=== PATIENT | female | born 1970 | race African-American/Black ===

== ENCOUNTER 2018-05-10 09:23 | Outpatient (CLI) | payer MEDICAID, SELFPAY ==
[2018-05-11 18:53] LABS: Food Panel <0.35 kU/L; Food Panel #2, IgE <0.35 kU/L
== END 2018-05-10 09:24 ==
PROVIDERS: Nurse Practitioner; PCP Family Medicine; Visit Provider Family Medicine
DX: L29.9 Pruritus, unspecified (principal)
CPT/HCPCS: 36415; 86003

== ENCOUNTER 2019-01-20 03:26 | Outpatient (CLI) | payer OTHER, SELFPAY | END 2019-01-20 03:46 | PROVIDERS: PCP Family Medicine; Visit Provider Family Medicine | DX: Z13.1 Encounter for screening for diabetes mellitus (principal); Z13.29 Encounter for screening for other suspected endocrine disorder; Z13.228 Encounter for screening for other metabolic disorders | CPT/HCPCS: 80048; 84443 ==

== ENCOUNTER 2019-11-10 02:45 | Outpatient (CLI) | payer OTHER, SELFPAY ==
--- NOTE | 2019-11-10 07:15 | DI.MAMMO_ITS ---
EXAM: MAMMO SCREENING CLINICAL HISTORY: screening,Z12.39 TECHNIQUE: Mammograms were interpreted according to the usual protocol including computer analysis w [employer] CAD system, tomosynthesis and C-view imaging. COMPARISON: 2009 through 2013 FINDINGS: The breasts are composed of mainly fatty density , Breast Density category A. No suspicious masses or suspicious microcalcifications are seen. No skin thickening or abnormal axillary lymph nodes are seen. There has been no significant change from prior exams. IMPRESSION: BIRADS Category 1, negative mammogram. Yearly screening mammography is recommended. Breast density category A.
--- NOTE | 2019-11-10 14:25 | DI.US_ITS ---
EXAM: US PELVIS AND TRANSVAGINAL CLINICAL HISTORY: Hx R dermoid cyst,OVARIAN CYST,N83.209,D25.9 TECHNIQUE: Transabdominal and transvaginal exams were performed. COMPARISON: PELVIS TRANSVAG from 01/29/2017 PELVIS TRANSVAG from 03/18/2018 FINDINGS: The uterus measures 10.3 x 5.3 x 6.7 cm. Two small posterior fibroids are seen measuring 1.8 and 2.2 cm in greatest dimension. The endometrial stripe measures 9 millimeters in thickness. There is a s mall amount of fluid in the cul-de-sac. There are 2 small follicles or simple cysts on the left ovar y. The right ovary shows a 1.2 centimeter dominant follicle. The previously noted echogenic mass is not visible on the current exam. There are mildly prominent pelvic vessels, which could indicate pe lvic congestion syndrome. There is a question of an echogenic focus measuring 3 millimeters in the m id left kidney. A small cyst is noted at the lower pole of the right kidney. There is no hydronephr osis. IMPRESSION: Previously noted hyperechoic right ovarian mass is no longer seen. Follicles are noted bilaterally. Uterine fibroids are again noted. DATA REPOSITORY:
== END 2019-11-10 03:05 ==
PROVIDERS: PCP Family Medicine; Visit Provider Nurse Practitioner Women's Health
DX: Z12.31 Encounter for screening mammogram for malignant neoplasm of breast (principal); D25.9 Leiomyoma of uterus, unspecified; N83.02 Follicular cyst of left ovary; N83.01 Follicular cyst of right ovary; N28.1 Cyst of kidney, acquired
CPT/HCPCS: 77063; 77067; 76830; 76856

== ENCOUNTER 2019-11-26 09:12 | Outpatient (CLI) | payer OTHER, SELFPAY ==
[2019-11-26 00:59] LABS: Calculated LDL 119 mg/dL (<100); Cholesterol 202 mg/dL (<200); HDL Cholesterol 53 mg/dL (40-60); Triglyceride 151 mg/dL (<150)
== END 2019-11-26 09:32 ==
PROVIDERS: PCP Family Medicine; Visit Provider Nurse Practitioner Women's Health
DX: Z13.220 Encounter for screening for lipoid disorders (principal)
CPT/HCPCS: 80061; 93005; 96360; 99284; 93010

== ENCOUNTER 2021-01-21 09:22 | Outpatient (REF) | payer OTHER, SELFPAY ==
--- NOTE | 2021-01-21 08:40 | PAPFT_PTH ---
PATIENT: Anand Ruiz LOC: [facility] U#:[id number] AGE/SX: 50/F ROOM: RE01/21/[address]: Ludmila Dockery NP : 1970 BED: DIS: 01/21/2021 SPEC #: [id number] RECD: 01/21/21 12:50 STATUS: SHANDRA AMAYA #: [id number] KAY: 01/21/21 08:[address]: Ludmila Dockery NP DEPT: [facility] Cytology RECD BY: Mai Ayon ENTERED: 01/21/21 12:51 SP TYPE: PAPFT OTHR DR: Alexis Gao, DO Tissues: 1 - CX/ENDOCX FOR PAP SMEARS Procedures: PAP THIN PREP/UVM Screening HPV DNA PROBE Comments: [id number]
== END 2021-01-21 09:23 | disposition home or self-care (01) ==
LOC: LBN 09:22
PROVIDERS: PCP Family Medicine; Visit Provider Nurse Practitioner Women's Health
DX: Z12.4 Encounter for screening for malignant neoplasm of cervix (principal); Z11.51 Encounter for screening for human papillomavirus (HPV)
CPT/HCPCS: 88142; 87624

== ENCOUNTER 2021-03-07 03:19 | Outpatient (CLI) | payer OTHER, SELFPAY ==
--- NOTE | 2021-03-07 06:52 | DI.MAMMO_ITS ---
Exam(s) MAMMO SCREENING EXAM: MAMMO SCREENING CLINICAL HISTORY: screening, Z12.39. TECHNIQUE: Bilateral full field digital CC and MLO mammographic images were obtained with 3D tomosyn thesis and utilizing computer aided detection (CAD). COMPARISON: Prior outside mammogram performed October 2019 FINDINGS: The fibroglandular tissue pattern is again noted be moderately dense, this decreasing the sensitivity of the mammogram for finding in underlying lesions. There are no CAD designations There are no new obvious spiculated masses nor malignant appearing microcalcification groups. There is no significant architectural distortion nor skin thickening-retraction. IMPRESSION: Moderately dense fibroglandular tissue. No obvious radiographic evidence of malignancy nor significa nt change compared to the prior mammogram of October 2019. BI-RADS Category 1 - Negative Breast Density - Category C - Heterogeneously dense Breast density Category C or D implies that the patient has dense breast tissue. Dense breast tissue can make it harder to find cancer on a mammogram. Dense breast tissue is also associated with an incr eased risk of breast cancer. This information about the result of the mammogram report was provided to the patient to raise their awareness. Use this report when you speak with the patient about their risks for breast cancer, which includes their family history. At that time, you may recommend additional screening tests (Ultrasoun d or MRI) as these tests may add significant information. A negative radiographic report should not delay biopsy if a dominant or clinically suspicious mass is present. Up to ten percent of cancers are not identified on mammography. A negative report may reinforce clinical impression. Adenosis and dense breasts may obscure an underlying neoplasm. False positive reports average 6 to 10%. Patient will receive a letter notifying them of these results.
== END 2021-03-07 03:39 ==
PROVIDERS: PCP Family Medicine; Visit Provider Nurse Practitioner Women's Health
DX: Z12.31 Encounter for screening mammogram for malignant neoplasm of breast (principal)
CPT/HCPCS: 77063; 77067

== ENCOUNTER 2021-05-15 10:42 | Outpatient (REF) | payer OTHER, SELFPAY ==
[2021-05-15 11:49] LABS: Calculated LDL 92 mg/dL (<100); Cholesterol 165 mg/dL (<200); HDL Cholesterol 58 mg/dL (40-60); Triglyceride 77 mg/dL (<150)
[2021-05-16 11:22] LABS: Hepatitis C Ab w Rflx HCV PCR Negative (Negative)
== END 2021-05-15 10:43 | disposition home or self-care (01) ==
LOC: LBN 10:42
PROVIDERS: PCP Family Medicine; Visit Provider Nurse Practitioner Family
DX: E78.5 Hyperlipidemia, unspecified (principal); Z11.59 Encounter for screening for other viral diseases
CPT/HCPCS: 80061; 86803

== ENCOUNTER 2022-01-29 07:45 | Day surgery (SDC) | payer OTHER, SELFPAY ==
--- NOTE | 2022-01-29 06:40 | COLE_ITS ---
Colonoscopy Report Date of procedure: 01/29/22 Pre-op diagnosis general: Colon Cancer screening Procedure: Colonoscopy Surgeon: Gabrielle Alas Anesthesia Type: General:No Airway Complications: None Disposition: same day Indications: Mrs Ruiz is a very pleasant 51-year-old female who is here to discuss her first screening colonoscopy.? She is very healthy and does not take any medications.? She has no family history of colon cancer.? She does not smoke or drink alcohol.? The colonoscopy was described in detail including the risks and benefi ts. Risks, benefits and complications have been reviewed. Complications include but are not limited to bleeding, pain, perforation, missed small lesion/polyp, sore throat, aspiration and adverse reaction to the medications. Questions were entertained and answered to their satisfaction and they wished to proceed. No guarantees were given or implied. Proceed with colonoscopy under sedation Prep: Miralax/Dulcolax Procedure Description: After informed consent was obtained the patient was taken to the procedure room and placed in a left decubitous position. Monitors were applied and a time out was done. The patients name, date of , procedure, allergies to medications and metal in their body was reviewed. The patient was then sedated. Once sedated and comfortable a rectal exam was done. External exam was normal. Internal exam revealed a normal sphincter tone and no palpable masses. The prostate []. The scope was then introduced and retro-flexed. [] internal hemorrhoids, polyps or masses were identified on retro-flexion. The scope was then advanced to the cecum [] difficulty. The ileocecal vlave and appendiceal orifice were identified. The prep was []. The scope was then slowly retracted over [] minutes back into the rectum. Polyps were removed at []. There was [] diverticulosis noted. The scope was removed and the patient was woken up and taken back to Same day surgery in stable condition. The patient tolerated the procedure well and there were no immediate complications. Follow up: The patient should follow up in [] years unless they develop changes in bowel habits or other new gastrointestinal complaints.
--- NOTE | 2022-01-29 06:48 | W.PM.DSUDISC ---
Discharge Plan Disposition Patient Disposition: HOME Condition: Good Discharge Details Reason For Visit: Colonoscopy Attending Provider: Gabrielle Alas Primary Care Provider: Alexis Gao Home Meds and New Rx's Prescriptions: No Action ibuprofen 800 mg tablet 800 mg PO Q8H PRN MDD 2400 mg PRN Rx Instructions: As needed for migraines Discharge Instructions Additional Instructions: Findings: Follow up: Please call if you develop: fevers >101.5 Nausea or Vomiting Abdominal pain that is not transient Rectal bleeding that is more then a tbsp A hard abdomen and inability to pass gas DAY SURGERY UNIT POST ENDOSCOPY INSTRUCTIONS Instructions for everyone who is given Anesthesia: For your safety, please do the following for the next 24 Hours: a. Do not drive or operate dangerous equipment b. Do not drink alcohol beverages or use any recreational drugs for the first 24 hours or while taking pain medications. The medications in your body may have a reaction that can be dangerous. c. Do not make any important decisions or sign any important papers 1. Generally there are no restrictions on your activity after a day or so has gone by, but you may feel a bit fatigued for a few days. 2. After you arrive home you may have a light meal and return to a normal diet as you can tolerate it without feeling sick to your stomach. 3. After surgery, you may feel pain or discomfort. This should be only transient, but if it persists please contact your doctor. 4. If there are any questions regarding the findings of your procedure, please feel free to contact your doctor. 6. If you are unable to contact your doctor with a problem, contact the hospital at [phone]. 7. Continue all your regular medications unless directed otherwise. I understand the above instructions and have no questions. Signature of Patient or Responsible Adult Escort Date/Time Name of Responsible Adult Escort Signature of Nurse Date/Time Activity:: Activity as Tolerated Diet:: As Tolerated
--- NOTE | 2022-01-29 07:55 | W.ANESPRE ---
General Info Height: 4 ft 11 in Surgical Procedure: Operation Date: 01/29/22 09:20 Proposed Procedure Side Surgeon p Colonoscopy Gabrielle Alas MD Meds Allergies and Home Medications Allergies Allergy/AdvReac Type Severity Reaction Status Date / Time morphine AdvReac Intermediate heart Verified 01/27/22 14:42 racing, anxitey attacks Home Medication Medication Instructions Recorded ibuprofen 800 mg tablet 800 mg PO Q8H PRN PRN 01/27/22 Current Visit Medications: Current Medications Generic Name Dose Route Start Last Admin Trade Name Freq PRN Reason Stop Dose Admin Hyoscyamine Sulfate 0.125 mg 01/29/22 06:48 Hyoscyamine 0.125 Mg Sl/Oral/Chew SL DIRECTED PRN Ringer's Solution 1,000 mls @ 80 mls/hr 01/29/22 06:00 IV 02/27/22 23:59 INFUSION [facility] IV Miscellaneous Supplies 1 each 01/29/22 06:00 Iv Access IV 02/27/22 23:59 DIRECTED SAGAR Ondansetron HCl 4 mg 01/29/22 06:48 Ondansetron 4 Mg/2 Ml Vial IVP Q4H PRN PRN Nausea / Vomiting Sodium Chloride 0 ml 01/29/22 06:00 Normal Saline Flush 10 Ml Syr IV 02/27/22 23:59 PRN PRN Sodium Chloride 0 ml 01/29/22 06:00 Normal Saline 10 Ml Vial IJ 02/27/22 23:59 DIRECTED PRN Sterile Water 0 ml 01/29/22 06:00 Water,Injection,Sterile 10 Ml Vial IJ 02/27/22 23:59 DIRECTED PRN PFSH Active Problems Active Problems: Problem Status Onset Code Hemorrhoid Unspecified hemorrhoids 12/04/17 K64.9 Encounter for screening for malignant neoplasm of colon Z12.11 Medical History Medical History Cyst of right kidney (12/04/17) 1.3 cm Depression with anxiety (12/07/17) Dyspareunia in female (12/04/17) Fibroid uterus Frequent headaches (12/07/17) Leiomyoma of uterus, unspecified (12/04/17) 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) Melasma Derm: [facility] [place] Migraine with aura 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 (12/04/17) Vaginal odor Surgical History Surgical History Appendectomy section History of appendectomy History of section Tobacco Smoking/Tobacco Use Status: Never Passive smoking exposure: No Alcohol Alcohol Intake: never Substance Use Substance use: Never Substance use type: does not use Prental History History 2 Para Hx # Term Pregnancies 2 Multiple births Hx # Pregnancies Ectopic pregnancies AB induced Hx Number of Living Children AB spontaneous Vital Signs and Lab Results Lab Results Blood Type / Crossmatch: No Data to Display Complete Blood Count: No Data to Display Complete Metabolic Panel: No Data to Display Liver Function Panel: No Data to Display Coagulation Panel: No Data to Display Cardiac Panel: No Data to Display Arterial Blood Gas: No Data to Display Venous Blood Gas: No Data to Display Pancreas Panel: No Data to Display Thyroid Panel: No Data to Display Infectious Disease: No Data to Display Blood Cultures: No Data to Display Toxicology Panel: No Data to Display Panel: No Data to Display Anesthesia Assessment and Plan Anesthesia History Personal History: No History of Anesthesia Complications Family History: No Family History of Anesthesia Complications Exercise Tolerance Exercise Tolerance: Metabolic Equivalents>4 Pertinent Negatives Pertinent Negatives: No Symptoms of GERD, No Major Cardiovascular Symptoms or Complaints, No Major Pulmonary Symptoms or Complaints and No History of CVA/TIA Cardiac & Pulmonary Exam Cardiac Exam: Normal S1/S2 Heart Sounds Pulmonary Exam: Clear Bilateral Breath Sounds Implantable Cardiac Device Does patient have a Pacemaker or an ICD?: No Airway Exam Known Difficult Airway: No Mallampati Class: 2 Mouth Opening: Normal (> 3cm) Thyromental Distance: Greater than 3 cm Neck Range of Motion: Full ROM Neck Circumference: Normal Teeth Condition: Normal Dentition ASA Classification ASA Score: ASA 2 Emergency Case?: No NPO Status NPO Status: NPO Clears >2 hours, Solids >8 hours Status Status: Negative HCG Anesthesia Plan Resuscitation Status: Full Code Anesthesia Technique: General Anesthesia Airway Planned: Natural Airway Monitors Used: Standard Monitors
--- NOTE | 2022-01-29 08:12 | NUR.NOTE ---
Nursing Note: Pt arrived in [facility] for colonoscopy. Upon questioning pt about prep it was revealed that pt ate a regular diet all day yesterday. Dr Alas notified and case cancelled. Pt told to call the office and reschedule case.
== END 2022-01-29 07:46 | disposition home or self-care (01) ==
LOC: SUR 07:45
PROVIDERS: PCP Family Medicine; Visit Provider Surgery
DX: Z12.11 Encounter for screening for malignant neoplasm of colon (principal); Z53.09 Procedure and treatment not carried out because of other contraindication

== ENCOUNTER 2022-02-03 06:49 | Day surgery (SDC) | payer OTHER, SELFPAY ==
--- NOTE | 2022-02-03 06:44 | W.COLOREPORT ---
Colonoscopy Report Date of procedure: 02/03/22 Pre-op diagnosis general: Colon Cancer Screening Post-op diagnosis procedure note: other (colorectal polyps) Procedure: Colonoscopy with polypectomy Surgeon: Gabrielle Alas Anesthesia Type: General:No Airway Estimated blood loss (mL): 3 Pathology: other (transverse polyp, rectal polyp x2) Complications: None Disposition: same day Indications: Mrs Ruiz is a very pleasant 51-year-old female who is here to discuss her first screening colonoscopy.? She is very healthy and does not take any medications.? She has no family history of colon cancer.? She does not smoke or drink alcohol.? The colonoscopy was described in detail including the risks and benefits. Risks, benefits and complications have been reviewed. Complications include but are not limited to bleeding, pain, perforation, missed small lesion/polyp, sore throat, aspiration and adverse reaction to the medications. Questions were entertained and answered to their satisfaction and they wished to proceed. No guarantees were given or implied. Proceed with colonoscopy under sedation Prep: Miralax/Dulcolax Procedure Start Time: 07:35 Procedure End Time: 07:53 Retraction Time: 11 minutes Findings: 3 small polyps Procedure Description: After informed consent was obtained the patient was taken to the procedure room and placed in a left decubitous position. Monitors were applied and a time out was done. The patients name, date of , procedure, allergies to medications and metal in their body was reviewed. The patient was then sedated. Once sedated and comfortable a rectal exam was done. External exam was normal. Internal exam revealed a normal sphincter tone and no palpable masses. The scope was then introduced and retro-flexed. No internal hemorrhoids, polyps or masses were identified on retro-flexion. The scope was then advanced to the cecum without difficulty. The ileocecal vlave and appendiceal orifice were identified. The prep was good. The scope was then slowly retracted over 11 minutes back into the rectum. Polyps were removed with cold forceps in the transverse colon and rectum x2. There was no diverticulosis noted. The scope was removed and the patient was woken up and taken back to Same day surgery in stable condition. The patient tolerated the procedure well and there were no immediate complications. Follow up: The patient should follow up in 5 years unless they develop changes in bowel habits or other new gastrointestinal complaints.
--- NOTE | 2022-02-03 06:45 | W.PM.DSUDISC ---
Discharge Plan Disposition Patient Disposition: HOME Condition: Good Discharge Details Reason For Visit: COlonoscopy Attending Provider: Gabrielle Alas Primary Care Provider: Alexis Gao Home Meds and New Rx's Prescriptions: Continued ibuprofen 800 mg tablet 800 mg PO Q8H PRN MDD 2400 mg PRN Rx Instructions: As needed for migraines Discharge Instructions Instructions: Colorectal Polyps (DC) Additional Instructions: Findings: 3 very small polyps Follow up: 5 years Please call if you develop: fevers >101.5 Nausea or Vomiting Abdominal pain that is not transient Rectal bleeding that is more then a tbsp A hard abdomen and inability to pass gas DAY SURGERY UNIT POST ENDOSCOPY INSTRUCTIONS Instructions for everyone who is given Anesthesia: For your safety, please do the following for the next 24 Hours: a. Do not drive or operate dangerous equipment b. Do not drink alcohol beverages or use any recreational drugs for the first 24 hours or while taking pain medications. The medications in your body may have a reaction that can be dangerous. c. Do not make any important decisions or sign any important papers 1. Generally there are no restrictions on your activity after a day or so has gone by, but you may feel a bit fatigued for a few days. 2. After you arrive home you may have a light meal and return to a normal diet as you can tolerate it without feeling sick to your stomach. 3. After surgery, you may feel pain or discomfort. This should be only transient, but if it persists please contact your doctor. 4. If there are any questions regarding the findings of your procedure, please feel free to contact your doctor. 6. If you are unable to contact your doctor with a problem, contact the hospital at [phone]. 7. Continue all your regular medications unless directed otherwise. I understand the above instructions and have no questions. Signature of Patient or Responsible Adult Escort Date/Time Name of Responsible Adult Escort Signature of Nurse Date/Time Activity:: Activity as Tolerated Diet:: As Tolerated Discharge Orders Discharge Orders: Discharge Order (Routine); Ordered 02/03/22 Ordered By: Gabrielle Alas
[2022-02-03 06:53] VITALS: BP 107/75; PULSE 66; RESP 17; TEMP 36.5; O2SAT 100
[2022-02-03] MEDS: Lactated Ringers 1,000 ML 80 ML IV (07:10)
--- NOTE | 2022-02-03 07:22 | W.ANESPRE ---
General Info Date of Service Date Performed: 02/03/22 Height: 4 ft 11 in Weight: 49.7 kg Body Mass Index (BMI): 22.1 Surgical Procedure: Operation Date: 02/03/22 08:50 Proposed Procedure Side Surgeon p Colonoscopy Gabrielle Alas MD Meds Allergies and Home Medications Allergies Allergy/AdvReac Type Severity Reaction Status Date / Time morphine AdvReac Intermediate heart Verified 01/31/22 10:08 racing, anxitey attacks Home Medication Medication Instructions Recorded ibuprofen 800 mg tablet 800 mg PO Q8H PRN PRN 01/27/22 Current Visit Medications: Current Medications Generic Name Dose Route Start Last Admin Trade Name Freq PRN Reason Stop Dose Admin Hyoscyamine Sulfate 0.125 mg 02/03/22 06:46 Hyoscyamine 0.125 Mg Sl/Oral/Chew SL DIRECTED PRN Ringer's Solution 1,000 mls @ 80 mls/hr 02/03/22 06:00 02/03/22 07:10 IV 03/02/22 23:59 80 mls/hr INFUSION SAGAR Administration IV Miscellaneous Supplies 1 each 02/03/22 06:00 Iv Access IV 03/02/22 23:59 DIRECTED SAGAR Ondansetron HCl 4 mg 02/03/22 06:46 Ondansetron 4 Mg/2 Ml Vial IVP Q4H PRN PRN Nausea / Vomiting Sodium Chloride 0 ml 02/03/22 06:00 Normal Saline Flush 10 Ml Syr IV 03/02/22 23:59 PRN PRN Sodium Chloride 0 ml 02/03/22 06:00 Normal Saline 10 Ml Vial IJ 03/02/22 23:59 DIRECTED PRN Sterile Water 0 ml 02/03/22 06:00 Water,Injection,Sterile 10 Ml Vial IJ 03/02/22 23:59 DIRECTED PRN PFSH Active Problems Active Problems: Problem Status Onset Code Hemorrhoid Unspecified hemorrhoids 12/04/17 K64.9 Encounter for screening for malignant neoplasm of colon Z12.11 Medical History Medical History Cyst of right kidney (12/04/17) 1.3 cm Depression with anxiety (12/07/17) Dyspareunia in female (12/04/17) Fibroid uterus Frequent headaches (12/07/17) Leiomyoma of uterus, unspecified (12/04/17) 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) Melasma Derm: [facility] [place] Migraine with aura 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 (12/04/17) Vaginal odor Surgical History Surgical History Appendectomy section History of appendectomy History of section Tobacco Smoking/Tobacco Use Status: Never Passive smoking exposure: No Alcohol Alcohol Intake: never Substance Use Substance use: Never Substance use type: does not use Prental History History 2 Para Hx # Term Pregnancies 2 Multiple births Hx # Pregnancies Ectopic pregnancies AB induced Hx Number of Living Children AB spontaneous Vital Signs and Lab Results Vital Signs Most Recent Vital Signs in EMR: Most Recent Vital Signs Temp Pulse Resp BP Pulse Ox 36.5 C 66 17 107/75 100 02/03/22 06:53 02/03/22 06:53 02/03/22 06:53 02/03/22 06:53 02/03/22 06:53 Lab Results Blood Type / Crossmatch: No Data to Display Complete Blood Count: No Data to Display Complete Metabolic Panel: No Data to Display Liver Function Panel: No Data to Display Coagulation Panel: No Data to Display Cardiac Panel: No Data to Display Arterial Blood Gas: No Data to Display Venous Blood Gas: No Data to Display Pancreas Panel: No Data to Display Thyroid Panel: No Data to Display Infectious Disease: No Data to Display Blood Cultures: No Data to Display Toxicology Panel: No Data to Display Panel: No Data to Display Anesthesia Assessment and Plan Anesthesia History Personal History: No History of Anesthesia Complications and Malignant Hyperthermia Family History: No Family History of Anesthesia Complications Exercise Tolerance Exercise Tolerance: Metabolic Equivalents>4 Pertinent Negatives Pertinent Negatives: No Symptoms of GERD, No Major Cardiovascular Symptoms or Complaints, No Major Pulmonary Symptoms or Complaints and No History of CVA/TIA Cardiac & Pulmonary Exam Cardiac Exam: Normal S1/S2 Heart Sounds Pulmonary Exam: Clear Bilateral Breath Sounds Implantable Cardiac Device Does patient have a Pacemaker or an ICD?: No Airway Exam Known Difficult Airway: No Mallampati Class: 2 Mouth Opening: Normal (> 3cm) Thyromental Distance: Greater than 3 cm Neck Range of Motion: Full ROM Neck Circumference: Normal Teeth Condition: Normal Dentition ASA Classification ASA Score: ASA 1 Emergency Case?: No NPO Status NPO Status: NPO Clears >2 hours, Solids >8 hours Status Status: Not Relevant due to Medical History Anesthesia Plan Resuscitation Status: Full Code Anesthesia Technique: General Anesthesia Airway Planned: Natural Airway Monitors Used: Standard Monitors
[2022-02-03 07:27] VITALS: BMI 22.1
--- NOTE | 2022-02-03 07:45 | BOWEL_PTH ---
PATIENT: Anand Ruiz LOC: [facility] U#:[id number] AGE/SX: 51/F ROOM: RE02/03/[address]: Gabrielle Alas MD : 1970 BED: DIS: 02/03/2022 SPEC #: [id number] RECD: 02/03/22 12:04 STATUS: SHANDRA RE #: [id number] KAY: 02/03/22 07:[address]: Gabrielle Alas DEPT: Surgical Specimen RECD BY: Mai Ayon ENTERED: 02/03/22 12:05 SP TYPE: Bowel OTHR DR: Alexis Gao DO Tissues: 1 - BIOPSY BOWEL 2 - BIOPSY BOWEL Procedures: GROSS AND MICRO LEVEL 4 Comments: [id number]
[2022-02-03 08:04] VITALS: BP 121/81; PULSE 63; RESP 17; TEMP 36.3; O2SAT 100
--- NOTE | 2022-02-03 08:10 | W.ANESPOSTOP ---
Postoperative Evaluation Date, Time and Location Date Performed: 02/03/22 Time Performed: 08:10 Patient Location: Day Surgery Unit Vital Signs Most Recent Imported Vital Signs: Most Recent Vital Signs Temp Pulse Resp BP Pulse Ox 36.3 C L 63 17 121/81 100 02/03/22 08:04 02/03/22 08:04 02/03/22 08:04 02/03/22 08:04 02/03/22 08:04 Pain Score Most Recent Pain Score: Most Recent Pain Score Pain Level 0 02/03/22 06:53 Assessment Mental Status: Awake (Alert & Oriented to Patient Baseline) Airway and Respiratory Function: Patent airway with normal (patient baseline) respiratory exam Cardiovascular Function: Hemodynamically Stable Hydration Status: Adequately Hydrated Nausea & Vomiting: No Nausea or Vomiting Pain: Pt. Denies Any Pain Peripheral Nerve Block: Patient did not receive a nerve block
[2022-02-03 08:26] VITALS: BP 111/85; PULSE 53; RESP 17; TEMP 36.4; O2SAT 100
== END 2022-02-03 09:07 | disposition home or self-care (01) ==
PROVIDERS: PCP Family Medicine; Visit Provider Surgery
PROC: 0DJD8ZZ Inspection of Lower Intestinal Tract, Via Natural or Artificial Opening Endoscopic (ICD-10-PCS; CPT 45378; principal; 2022-02-03 08:45)
DX: Z12.11 Encounter for screening for malignant neoplasm of colon (principal); K63.5 Polyp of colon; K62.1 Rectal polyp; K63.89 Other specified diseases of intestine
CPT/HCPCS: 45380; 81025; 88305

== ENCOUNTER 2022-04-04 02:16 | Outpatient (CLI) | payer OTHER, SELFPAY ==
[2022-04-04 08:10] LABS: ALT 46 U/L (14-59); AST 33 U/L (15-37); Alkaline Phosphatase 101 U/L (46-116); Anion Gap 9.2 mmol/L (3-11); BUN 22 mg/dL (7-18); Bilirubin, Total 0.8 mg/dL (0.2-1.0); CO2 27.8 mmol/L (21.0-32.0); CREATININE 0.9 mg/dL (0.55-1.02); Calcium 9.3 mg/dL (8.5-10.1); Calculated LDL 143 mg/dL (<100); Chloride 104 mmol/L (98-107); Cholesterol 230 mg/dL (<200); Glucose 97 mg/dL (74-106); HDL Cholesterol 78 mg/dL (40-60); Potassium 3.9 mmol/L (3.5-5.1); Sodium 141 mmol/L (136-145); Total Protein 7.7 g/dL (6.4-8.2); Triglyceride 49 mg/dL (<150)
== END 2022-04-04 02:17 | disposition home or self-care (01) ==
LOC: LBO 02:16
PROVIDERS: PCP Family Medicine; Visit Provider Family Medicine
DX: Z13.1 Encounter for screening for diabetes mellitus (principal); Z86.39 Personal history of other endocrine, nutritional and metabolic disease
CPT/HCPCS: 36415; 80053; 80061

== ENCOUNTER → 2022-05-14 02:15 | Outpatient (CLI) | payer OTHER, SELFPAY ==
--- NOTE | 2022-05-14 07:00 | DI.MAMMO_ITS ---
Exam(s) MAMMO SCREENING EXAM: MAMMO SCREENING CLINICAL HISTORY: screening, Z12.39. TECHNIQUE: Bilateral full field digital CC and MLO mammographic images were obtained with 3D tomosyn thesis and utilizing computer aided detection (CAD). COMPARISON: Prior mammograms were reviewed, the most recent being February 2021. FINDINGS: There has been no significant change in the appearance and distribution of the fibroglandular tissue which is again noted be moderately dense. There are no new obvious spiculated masses nor malignant appearing microcalcification groups. There is no significant architectural distortion nor skin thickening-retraction. IMPRESSION: Moderately dense fibroglandular tissue. No radiographic evidence of malignancy. No significant rodriguez ge compared to prior studies BI-RADS Category 1 - Negative Breast Density - Category C - Heterogeneously dense Breast density Category C or D implies that the patient has dense breast tissue. Dense breast tissue can make it harder to find cancer on a mammogram. Dense breast tissue is also associated with an incr eased risk of breast cancer. This information about the result of the mammogram report was provided to the patient to raise their awareness. Use this report when you speak with the patient about their risks for breast cancer, which includes their family history. At that time, you may recommend additional screening tests (Ultrasoun d or MRI) as these tests may add significant information. A negative radiographic report should not delay biopsy if a dominant or clinically suspicious mass is present. Up to ten percent of cancers are not identified on mammography. A negative report may reinforce clinical impression. Adenosis and dense breasts may obscure an underlying neoplasm. False positive reports average 6 to 10%. Patient will receive a letter notifying them of these results.
== END ==
PROVIDERS: PCP Family Medicine; Visit Provider Obstetrics & Gynecology Gynecology
DX: Z12.31 Encounter for screening mammogram for malignant neoplasm of breast (principal)
CPT/HCPCS: 77063; 77067

== ENCOUNTER 2022-07-14 12:22 | Outpatient (REF) | payer OTHER, SELFPAY ==
--- NOTE | 2022-07-14 11:20 | SKI_PTH ---
PATIENT: Anand Ruiz LOC: [facility] U#:[id number] AGE/SX: 52/F ROOM: RE07/14/[address]: Alexa Delgado : 1970 BED: DIS: 07/14/2022 SPEC #: [id number] RECD: 07/14/22 12:55 STATUS: SHANDRA REHamilton #: [id number] KAY: 07/14/22 11:[address]: Alexa Delgado DEPT: Surgical Specimen RECD BY: Mai Ayon ENTERED: 07/14/22 12:56 SP TYPE: BULMARO FUCHS DR: Alexis Gao DO Tissues: 1 - SKIN BIOPSY(SHAVE/PUNCH) Procedures: SKIN LEVEL 4 SPECIAL STAIN 1 Comments: [id number]
== END 2022-07-14 12:23 | disposition home or self-care (01) ==
LOC: LBN 12:22
PROVIDERS: PCP Family Medicine; Visit Provider Obstetrics & Gynecology Gynecology
DX: N76.89 Other specified inflammation of vagina and vulva; L30.8 Other specified dermatitis
CPT/HCPCS: 88305; 88312

== ENCOUNTER → 2023-06-09 21:01 | Outpatient (CLI) | payer OTHER, SELFPAY ==
--- NOTE | 2023-06-09 15:56 | DI.RAD_ITS ---
Exam(s) XR HIP RT COMPLETE AP PELVIS EXAM: XR HIP RT COMPLETE AP PELVIS CLINICAL HISTORY: PAIN IN RT HIP-[id number]. TECHNIQUE: 2D digital imaging was performed of the right hip. Two images were obtained. AP pelvis a nd lateral right hip views were obtained. COMPARISON: No exams were available for comparison FINDINGS: BONES: No acute fracture is present. No bony destructive lesion is seen. JOINTS: No dislocation present. SOFT TISSUE: Normal. IMPRESSION: Unremarkable radiographs of the right hip. Unremarkable radiographs of the pelvis. DATA REPOSITORY: RADIATION DOSE DELIVERED:
== END ==
PROVIDERS: PCP Family Medicine; Visit Provider Family Medicine
DX: M25.551 Pain in right hip (principal)
CPT/HCPCS: 73502

== ENCOUNTER 2023-07-28 08:39 | Outpatient (CLI) | payer OTHER, SELFPAY ==
[2023-07-28 08:14] LABS: HCT 40.2 % (36.0-46.0); HGB 12.9 g/dL (11.2-15.7); MCH 25.2 pg (27.0-33.0); MCHC 32.1 % (32.0-36.0); MCV 79 fL (80-95); MPV 9.8 fL (8.0-11.0); Platelet Count 198 10^3/uL (130-400); RBC 5.11 10^6/uL (3.93-5.22); RDW 12.5 % (11.7-14.6)
[2023-07-28 08:35] LABS: ALT 34 U/L (14-59); AST 25 U/L (15-37); Albumin 3.9 g/dL (3.4-5.0); Alkaline Phosphatase 90 U/L (46-116); Anion Gap 8.1 mmol/L (3-11); BUN 19 mg/dL (7-18); Bilirubin, Total 0.6 mg/dL (0.2-1.0); CO2 28.9 mmol/L (21.0-32.0); Calcium 9.8 mg/dL (8.5-10.1); Calculated LDL 150 mg/dL (<100); Chloride 103 mmol/L (98-107); Cholesterol 230 mg/dL (<200); Estimated GFR 67.78 (mL/min/1.73m2); Glucose 90 mg/dL (74-106); HDL Cholesterol 72 mg/dL (40-60); Potassium 3.9 mmol/L (3.5-5.1); Sodium 140 mmol/L (136-145); Total Protein 7.5 g/dL (6.4-8.2); Triglyceride 43 mg/dL (<150)
[2023-07-28 13:43] LABS: C-Reactive Protein 0.19 mg/dL (0.0-0.3)
[2023-07-29 10:38] LABS: Lyme Ab w Rflx to Lyme Confirm Negative (Negative)
[2023-07-30 22:26] LABS: Anaplasma phagocytophilum Negative (Negative); B. miyamotoi PCR Negative (Negative); Babesia divergens/MO-1 Negative (Negative); Babesia duncani Negative (Negative); Babesia microti Negative (Negative); Ehrlichia chaffeensis Negative (Negative); Ehrlichia ewingii/canis Negative (Negative); Ehrlichia muris eauclairensis Negative (Negative)
== END 2023-07-28 08:40 | disposition home or self-care (01) ==
LOC: LBO 08:39
PROVIDERS: Obstetrics & Gynecology Gynecology; PCP Family Medicine; Visit Provider Family Medicine
DX: M25.551 Pain in right hip (principal); E78.5 Hyperlipidemia, unspecified; Z01.818 Encounter for other preprocedural examination
CPT/HCPCS: 80053; 80061; 85027; 86850; 86900; 86901; 87798; 86140; 86618

== ENCOUNTER 2023-07-30 06:17 | Day surgery (SDC) | payer OTHER, SELFPAY ==
--- NOTE | 2023-07-29 17:57 | ANES.PREOP_ITS ---
General Info Date of Service Date Performed: 07/30/23 Height: 4 ft 11 in Weight: 51.936 kg Body Mass Index (BMI): 23.1 Surgical Procedure: Operation Date: 07/30/23 07:40 Proposed Procedure Side Surgeon p Salping-Oophorectomy Laparoscopic Bilateral Alexa Delgado MD Meds Allergies and Home Medications Allergies Allergy/AdvReac Type Severity Reaction Status Date / Time morphine AdvReac Intermediate heart Verified 07/30/23 06:50 racing, anxitey attacks insect bites Allergy Severe Uncoded 07/30/23 06:50 Home Medication Medication Instructions Recorded ibuprofen 800 mg tablet 800 mg PO Q8H PRN PRN migraines or 04/21/22 general pain #90 tabs [place] bone strength PO 07/17/23 ascorbate calcium (vitamin C) 500 1 g PO DAILY 07/17/23 mg tablet cholecalciferol (vitamin D3) 25 25 mcg PO DAILY 07/17/23 mcg (1,000 unit) capsule cyanocobalamin (vitamin B-12) 1,000 mcg PO DAILY 07/17/23 1,000 mcg capsule vitamin E (dl, acetate) 45 mg (100 45 mg PO DAILY 07/17/23 unit) capsule zinc acetate 50 mg (zinc) capsule 50 mg PO DAILY 07/17/23 Current Visit Medications: Current Medications Generic Name Dose Route Start Last Admin Trade Name Freq PRN Reason Stop Dose Admin Ringer's Solution 1,000 mls @ 125 mls/hr 07/30/23 06:00 IV 08/13/23 23:59 INFUSION SAGAR IV Miscellaneous Supplies 1 each 07/30/23 06:00 Iv Access IV 08/13/23 23:59 DIRECTED SAGAR Sodium Chloride 0 ml 07/30/23 06:00 Normal Saline Flush 10 Ml Syr IV 08/13/23 23:59 PRN PRN Sodium Chloride 0 ml 07/30/23 06:00 Normal Saline 10 Ml Vial IJ 08/13/23 23:59 DIRECTED PRN Sterile Water 0 ml 07/30/23 06:00 Water,Injection,Sterile 10 Ml Vial IJ 08/13/23 23:59 DIRECTED PRN PFSH Active Problems Active Problems: Problem Status Onset Code Preoperative exam for gynecologic surgery Z01.818 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) Leiomyoma of uterus, unspecified (12/04/17) Fibroid uterus Surgical History Surgical History History of colonoscopy (~01/2022) History of section History of appendectomy section Appendectomy Tobacco Smoking/Tobacco Use Status: Never Passive smoking exposure: No Alcohol Alcohol Intake: never Substance Use Substance use: Never Substance use type: does not use Prental History History 2 Para Hx # Term Pregnancies 2 Multiple births Hx # Pregnancies Ectopic pregnancies AB induced Hx Number of Living Children AB spontaneous Vital Signs and Lab Results Vital Signs Most Recent Vital Signs in EMR: Temp Pulse Resp BP Pulse Ox 36.7 C 68 16 130/88 100 07/30/23 06:52 07/30/23 06:52 07/30/23 06:52 07/30/23 06:52 07/30/23 06:52 Lab Results Blood Type / Crossmatch: Patient ABO/Rh B Positive 07/28/23 Antibody Screen NEGATIVE 07/28/23 Complete Blood Count: White Blood Count 7.00 10^3/uL (4.4-10.8) 07/28/23 08:11 Red Blood Count 5.11 10^6/uL (3.93-5.22) 07/28/23 08:11 Hemoglobin 12.9 g/dL (11.2-15.7) 07/28/23 08:11 Hematocrit 40.2 % (36.0-46.0) 07/28/23 08:11 Platelet Count 198 10^3/uL (130-400) 07/28/23 08:11 Complete Metabolic Panel: Sodium 140 mmol/L (136-145) 07/28/23 08:11 Potassium 3.9 mmol/L (3.5-5.1) 07/28/23 08:11 Chloride 103 mmol/L (98-107) 07/28/23 08:11 Carbon Dioxide 28.9 mmol/L (21.0-32.0) 07/28/23 08:11 BUN 19 mg/dL (7-18) H 07/28/23 08:11 Creatinine 1.0 mg/dL (0.55-1.02) 07/28/23 08:11 Est GFR (CKD-EPI 2020) 67.78 (mL/min/1.73m2) 07/28/23 08:11 Calcium 9.8 mg/dL (8.5-10.1) 07/28/23 08:11 Albumin 3.9 g/dL (3.4-5.0) 07/28/23 08:11 Glucose 90 mg/dL (74-106) 07/28/23 08:11 C-Reactive Protein 0.19 mg/dL (0.0-0.3) 07/28/23 08:11 Liver Function Panel: Alanine Aminotransferase (ALT/SGPT) 34 U/L (14-59) 07/28/23 08: 11 Aspartate Amino Transf (AST/SGOT) 25 U/L (15-37) 07/28/23 08:11 Coagulation Panel: No Data to Display Cardiac Panel: No Data to Display Arterial Blood Gas: No Data to Display Venous Blood Gas: No Data to Display Pancreas Panel: No Data to Display Thyroid Panel: No Data to Display Infectious Disease: No Data to Display Blood Cultures: No Data to Display Toxicology Panel: No Data to Display Panel: No Data to Display Imaging and Studies Imaging and Studies Study information below may be from another EMR and interpreted by another provider. Please see original notes in EMR for more complete details. Pulmonary Function Summary: 12/30: overall normal . Anesthesia Assessment and Plan Anesthesia History Personal History: No History of Anesthesia Complications Family History: No Family History of Anesthesia Complications Exercise Tolerance Exercise Tolerance: Metabolic Equivalents>4 Cardiac & Pulmonary Exam Cardiac Exam: Normal S1/S2 Heart Sounds Pulmonary Exam: Clear Bilateral Breath Sounds Implantable Cardiac Device Does patient have a Pacemaker or an ICD?: No Airway Exam Known Difficult Airway: No Mallampati Class: 2 Mouth Opening: Normal (> 3cm) Thyromental Distance: Greater than 3 cm Neck Range of Motion: Full ROM Neck Circumference: Normal Teeth Condition: Normal Dentition ASA Classification ASA Score: ASA 2 Emergency Case?: No NPO Status NPO Status: NPO Clears >2 hours, Solids >8 hours Status Status: Negative HCG Anesthesia Plan Resuscitation Status: Full Code Anesthesia Technique: General Anesthesia Airway Planned: Endotracheal Tube Monitors Used: Standard Monitors Preoperative Comments:: 53 yo female with teratoma right ovary for lap salping. Sig PMHx: depression/anxiety, never smoker/etoh. Denies major. No blood products is listed on her medical history. We discussed that if she is in extremis and there is a real need for blood would she except blood in that situation - she agrees to blood. Plan for no blood if not absolutely needed, but blood for immediate life saving measures if needed. Plan: GABILL, 2nd IV if arms tucked.
[2023-07-30] VITALS (14 sets, daily range): BP systolic 110–153; BP diastolic 59–92; PULSE 41–68; RESP 10–16; TEMP 36.2–36.7; O2SAT 100; BMI 23.1
[2023-07-30] MEDS: Lactated Ringers 1,000 ML 125 ML IV (07:08)
[2023-07-30] MEDS: Bupivacaine 0.25% Pres-Free 30 ML VIAL (08:13)
--- NOTE | 2023-07-30 08:46 | OVAR_PTH ---
PATIENT: Anand Ruiz LOC: [facility] U#:[id number] AGE/SX: 53/F ROOM: RE07/30/[address]: Alexa Delgado : 1970 BED: DIS: 07/30/2023 SPEC #: [id number] RECD: 07/30/23 12:16 STATUS: SHANDRA RE #: [id number] KAY: 07/30/23 08:[address]: Alexa Delgado DEPT: Surgical Specimen RECD BY: Mai Ayon ENTERED: 07/30/23 12:17 SP TYPE: YARITZA FUCHS DR: Alexis Gao DO Tissues: 1 - OVARY NOT TUMOR W OR W/O TUBES 2 - OVARY NOT TUMOR W OR W/O TUBES Procedures: GROSS AND MICRO LEVEL 4 GROSS AND MICRO LEVEL 5 Comments: [id number]
[2023-07-30] MEDS: fentaNYL 100 MCG/2 ML VIAL IVP ×2 (10:02→10:56)
[2023-07-30] MEDS: oxyCODONE 5 mg/Acetaminophen 325 mg TAB PO (10:43)
--- NOTE | 2023-07-30 10:51 | W.ANESPOSTOP ---
Postoperative Evaluation Date, Time and Location Date Performed: 07/30/23 Time Performed: 10:20 Patient Location: PACU Vital Signs Most Recent Imported Vital Signs: Most Recent Vital Signs Temp Pulse Resp BP Pulse Ox 36.6 C 46 L 10 L 151/82 H 100 07/30/23 10:38 07/30/23 10:38 07/30/23 10:38 07/30/23 10:38 07/30/23 10:38 Pain Score Most Recent Pain Score: Most Recent Pain Score Pain Level 7 07/30/23 10:38 Assessment Mental Status: Arousable with meaningful communication Airway and Respiratory Function: Patent airway with normal (patient baseline) respiratory exam Cardiovascular Function: Hemodynamically Stable Hydration Status: Adequately Hydrated Nausea & Vomiting: No Nausea or Vomiting Pain: Pain is Moderate or Severe Postoperative Pain Management: Pain being addressed with medication Peripheral Nerve Block: Patient did not receive a nerve block
--- NOTE | 2023-08-05 09:31 | W.PM.OP ---
Date of service: 07/30/23 Time of Service: 15:00 Operative Note Operative Note DATE OF PROCEDURE: 07/30/23 PRE-OP DIAGNOSIS: Right ovarian teratoma Risk-reducing salpingo-oophorectomy PROCEDURE: Laparoscopic bilateral salpingo-oophorectomy SURGEON: Alexa Delgado WIRE TINNER: Sophia Irwin Refer to Anesthesia Record ESTIMATED BLOOD LOSS: 0 PATHOLOGY: other (Bilateral ovaries and fallopian tubes to pathology) COMPLICATIONS: None Patient was transported to: PACU Patient's condition: stable Implants: None Indications: 53yo postmenopausal female with a [id number] dermoid cyst of the R ovary. Patient requested definitive therapy in addition to a risk-reducing salpingo-oophorectomy Findings: Enlarged right ovary normal-appearing left ovary and bilateral fallopian tubes Procedure Description: Patient was taken to the operating room where she was placed in the dorsal supine position and endotracheal anesthesia was administered.? She was then placed in the dorsolithotomy position in yellowfin stirrups and prepped in the usual sterile fashion.? SCDs were in place.?A surgical timeout was performed.? A [employer] uterine manipulator was inserted into the cervix and left in place. Attention was then turned to the abdominal portion of the case and the umbilical fold was infiltrated with 0.25% Marcaine and a 12 mm vertical skin incision was made in the umbilicus. Through this incision a Veres needle was inserted while connected to carbon dioxide as the distention medium. Intra-abdominal placement was confirmed by drop in the intra-abdominal pressure. Once a pneumoperitoneum was established a 12 mm Visiport trocar was introduced into the abdomen under direct visualization.? The patient was then placed in Trendelenburg position and approximately 6 cm diagonal to the right and left of the umbilical incision the skin was transilluminated and the subcutaneous tissue infiltrated with quarter percent Marcaine and incised with a scalpel.? Under direct visualization two 5 mm ports were placed in the right and left lower quadrants respectively.? The abdomen was inspected with the above-noted findings. A LigaSure electrocautery device was used to clamp cauterize and transect the right infundibulopelvic ligament. The LigaSure device was then used to clamp cauterize and incise the right ovarian ligament followed by the right mesosalpinx and the proximal portion of the isthmus of the right fallopian tube. This effectively freed the right adnexa which was placed in the anterior cul-de-sac. A similar technique was carried out on the contralateral left ovary and left fallopian tube. Both right and left pedicles were noted to be hemostatic. Both ureters were visualized and were noted to be distant from the operative field. A 10 mm collection bag was then placed through the umbilical port and both specimens placed in the bag and delivered intact. The camera was then reintroduced into the abdomen all pedicles were noted to be hemostatic. Patient was repositioned in the dorsal supine position and both 5 mm ports were removed under direct visualization followed by the 12 mm trocar. The pneumoperitoneum was deflated and the fascia of the umbilical port site was reapproximated with a running suture of 0 Vicryl. Skin of all trocar sites was reapproximated with a subcuticular suture of 4-0 Vicryl. The Hulka uterine manipulator was removed the tenaculum site was noted to be hemostatic. Patient was placed in the dorsal supine position awakened and extubated and transported to recovery area in stable condition.
== END 2023-07-30 14:15 | disposition home or self-care (01) ==
PROVIDERS: PCP Family Medicine; Visit Provider Obstetrics & Gynecology Gynecology
PROC: (CPT 58661; principal; 2023-07-30 07:30)
DX: D27.0 Benign neoplasm of right ovary (principal); F41.8 Other specified anxiety disorders; M54.50 Low back pain, unspecified; Z79.899 Other long term (current) drug therapy
CPT/HCPCS: 58661; 36415; 86850; 86900; 86901; 88305; 88307; J0131; J1100; J1885; J2250; J2405; J2704; J3010; J3475

== ENCOUNTER → 2023-09-09 00:41 | Outpatient (CLI) | payer OTHER, SELFPAY ==
--- NOTE | 2023-09-09 07:30 | DI.MAMMO_ITS ---
Exam(s) MAMMO SCREENING EXAM: MAMMO SCREENING CLINICAL HISTORY: screening. TECHNIQUE: Bilateral full field digital CC and MLO mammographic images were obtained with 3D tomosyn thesis and utilizing computer aided detection (CAD). COMPARISON: Prior mammograms were reviewed. FINDINGS: There has been no significant change in the appearance and distribution of the fibroglandular tissue which is again noted be moderately dense.. There are no new spiculated masses nor malignant appearing microcalcification groups. There is no significant architectural distortion nor skin thickening-retraction. IMPRESSION: No radiographic evidence of malignancy. BI-RADS Category 1 - Negative Breast Density - Category C - Heterogeneously dense Breast density Category C or D implies that the patient has dense breast tissue. Dense breast tissue can make it harder to find cancer on a mammogram. Dense breast tissue is also associated with an incr eased risk of breast cancer. This information about the result of the mammogram report was provided to the patient to raise their awareness. Use this report when you speak with the patient about their risks for breast cancer, which includes their family history. At that time, you may recommend additional screening tests (Ultrasoun d or MRI) as these tests may add significant information. A negative radiographic report should not delay biopsy if a dominant or clinically suspicious mass is present. Up to ten percent of cancers are not identified on mammography. A negative report may reinforce clinical impression. Adenosis and dense breasts may obscure an underlying neoplasm. False positive reports average 6 to 10%. Patient will receive a letter notifying them of these results.
== END ==
PROVIDERS: PCP Family Medicine; Visit Provider Obstetrics & Gynecology Gynecology
DX: Z12.31 Encounter for screening mammogram for malignant neoplasm of breast (principal)
CPT/HCPCS: 77063; 77067

== ENCOUNTER → 2024-03-01 03:48 | Outpatient (CLI) | payer OTHER, SELFPAY ==
--- NOTE | 2024-03-01 | DI.US_ITS ---
Exam(s) US BREAST LT COMPLETE MG MAMMO DIAGNOSTIC UNI EXAM: MG MAMMO DIAGNOSTIC UNI-LEFT AND COMPLETE LEFT BREAST ULTRASOUND CLINICAL HISTORY: Pain and fullness at medial L breast at 9 o'clock,PAINFUL LUMPY LT BREAST,. TECHNIQUE: Unilateral LEFT BREAST CC AND MLO mammographic images were obtained with 3D tomosynthesis technique and utilizing computer aided detection (CAD). ALSO PERFORMED SPOT COMPRESSION VIEW OF THE MEDIAL ASPECT OF THE LEFT BREAST (region of clinical interest). COMPLETE LEFT BREAST ULTRASOUND WAS PERFORMED including all 4 quadrants as well as the axillary regio ns. COMPARISON: Prior mammograms were reviewed, the most recent being there screening mammogram of Dece kenji 2022.. She recently visited her provider complaining of a possible lump in the medial aspect of her left juma ast. She is not sure if this lump is still present. She states that the size of the lump was betwee n the size of a green pea and a marble. FINDINGS: DIAGNOSTIC LEFT BREAST MAMMOGRAM: There has been no significant change in the appearance and distribution of the fibroglandular tissue. No new masses nor malignant-appearing microcalcification groups. No new architectural distortion or skin thickening-retraction. COMPLETE LEFT BREAST ULTRASOUND: No evidence of solid or significant cystic lesions in all 4 quadrants. Careful scanning of the medial aspect of the breast-area of concern is negative for significant focal findings Scanning of the left axilla is negative for significant adenopathy IMPRESSION: 1. No radiographic evidence of malignancy in left breast. 2. Negative complete left breast ultrasound Appropriate follow-up is repeat imaging in 3 months if this patient feels that the lump is still pres ent. Patient informs me today that she does not feel that the lump is as present as it previously wa s when she went to see her provider. If provider feels that there is a significant lump despite absence of findings on conventional imagin g (mammo and ultrasound) than consider sending this patient to breast surgeon. The patient was informed of the findings and follow-up recommendations by myself prior to leaving the department today. BI-RADS Category 3 - 6 month - Probably Benign Finding: Recommend follow-up mammography in 6 months Breast Density - Category B - Scattered areas of fibroglandular density Breast density Category C or D implies that the patient has dense breast tissue. Dense breast tissue can make it harder to find cancer on a mammogram. Dense breast tissue is also associated with an incr eased risk of breast cancer. This information about the result of the mammogram report was provided to the patient to raise their awareness. Use this report when you speak with the patient about their risks for breast cancer, which includes their family history. At that time, you may recommend additional screening tests (Ultrasoun d or MRI) as these tests may add significant information. A negative radiographic report should not delay biopsy if a dominant or clinically suspicious mass is present. Up to ten percent of cancers are not identified on mammography. A negative report may reinforce clinical impression. Adenosis and dense breasts may obscure an underlying neoplasm. False positive reports average 6 to 10%. Patient will receive a letter notifying them of these results.
== END ==
PROVIDERS: PCP Family Medicine; Visit Provider Obstetrics & Gynecology Gynecology
DX: N64.4 Mastodynia (principal); Z12.31 Encounter for screening mammogram for malignant neoplasm of breast
CPT/HCPCS: 76642; 77061; 77065; G0279

== ENCOUNTER 2024-07-29 15:14 | Outpatient (CLI) | payer OTHER, SELFPAY ==
[2024-07-29 15:34] LABS: ALT 26 U/L (14-59); AST 21 U/L (15-37); Albumin 3.7 g/dL (3.4-5.0); Alkaline Phosphatase 104 U/L (46-116); Anion Gap 9.1 mmol/L (3-11); BUN 25 mg/dL (7-18); Bilirubin, Total 0.58 mg/dL (0.2-1.0); CO2 27.9 mmol/L (21.0-32.0); Calcium 9.6 mg/dL (8.5-10.1); Calculated LDL 119 mg/dL (<100); Chloride 106 mmol/L (98-107); Cholesterol 210 mg/dL (<200); Estimated GFR 67.36 (mL/min/1.73m2); Glucose 87 mg/dL (74-106); HDL Cholesterol 81 mg/dL (40-60); Potassium 4.1 mmol/L (3.5-5.1); Sodium 143 mmol/L (136-145); Total Protein 7.2 g/dL (6.4-8.2); Triglyceride 52 mg/dL (<150)
== END 2024-07-29 15:15 | disposition home or self-care (01) ==
LOC: LBO 15:16
PROVIDERS: PCP Family Medicine; Visit Provider Family Medicine
DX: E78.5 Hyperlipidemia, unspecified (principal)
CPT/HCPCS: 36415; 80053; 80061

== ENCOUNTER 2024-08-24 16:09 | Outpatient (REF) | payer OTHER, SELFPAY ==
--- NOTE | 2024-08-24 16:16 | PAPFT_PTH ---
PATIENT: Anand Ruiz LOC: [facility] U#:[id number] AGE/SX: 54/F ROOM: RE08/24/[address]: Alexa Delgado : 1970 BED: DIS: 08/24/2024 SPEC #: [id number] RECD: 08/24/24 17:51 STATUS: SHANDRA REQ #: [id number] KAY: 08/24/24 16:[address]: Alexa Delgado DEPT: [facility] Cytology RECD BY: Mai Ayon ENTERED: 08/24/24 17:51 SP TYPE: PAPFT OTHR DR: Alexis Gao DO Tissues: 1 - CX/ENDOCX FOR PAP SMEARS Procedures: PAP THIN PREP/[facility] Screening HPV DNA PROBE Comments: [id number] (HPV 16 & 18/45)
== END 2024-08-24 16:10 | disposition home or self-care (01) ==
LOC: LBN 16:09
PROVIDERS: PCP Family Medicine; Visit Provider Obstetrics & Gynecology Gynecology
DX: Z01.419 Encounter for gynecological examination (general) (routine) without abnormal findings (principal)
CPT/HCPCS: 88142; 87624

== ENCOUNTER 2024-08-26 10:50 | Outpatient (CLI) | payer OTHER, SELFPAY ==
[2024-08-26 09:04] LABS: TSH (W/Ref FT4) 1.25 uIU/mL (0.36-3.74)
== END 2024-08-26 10:51 | disposition home or self-care (01) ==
LOC: LBO 10:51
PROVIDERS: PCP Family Medicine; Visit Provider Obstetrics & Gynecology Gynecology
DX: R53.83 Other fatigue (principal); Z00.00 Encounter for general adult medical examination without abnormal findings
CPT/HCPCS: 36415; 84443

== ENCOUNTER 2024-11-02 07:34 | Day surgery (SDC) | payer OTHER, SELFPAY ==
[2024-11-02 07:57] VITALS: BP 119/67; PULSE 62; RESP 14; TEMP 36.7; O2SAT 100
--- NOTE | 2024-11-02 08:19 | W.ANESPRE ---
General Info Date of Service Date Performed: 11/02/24 Height: 4 ft 11 in Weight: 51.8 kg Body Mass Index (BMI): 23.1 Surgical Procedure: Operation Date: 11/02/24 09:05 Proposed Procedure Side Surgeon p Colonoscopy Michael Nobles MD Actual Procedure Side Surgeon p Colonoscopy Not Applicable Michael Nobles MD Meds Allergies and Home Medications Allergies Allergy/AdvReac Type Severity Reaction Status Date / Time morphine AdvReac Intermediate heart Verified 11/01/24 11:18 racing, anxitey attacks insect bites Allergy Severe edema Uncoded 11/02/24 08:10 Home Medication ?Medication ?Instructions ?Recorded ibuprofen 800 mg tablet 800 mg PO Q8H PRN PRN migraines or 04/21/22 general pain #90 tabs [place] bone strength 1 tab PO DAILY 07/17/23 ascorbate calcium (vitamin C) 500 1 g PO DAILY 07/17/23 mg tablet cholecalciferol (vitamin D3) 25 25 mcg PO DAILY 07/17/23 mcg (1,000 unit) capsule cyanocobalamin (vitamin B-12) 1,000 mcg PO DAILY 07/17/23 1,000 mcg capsule vitamin E (dl, acetate) 45 mg (100 45 mg PO DAILY 07/17/23 unit) capsule zinc acetate 50 mg (zinc) capsule 50 mg PO DAILY 07/17/23 magnesium 200 mg tablet 200 mg PO DAILY 02/25/24 Current Visit Medications: Current Medications Generic Name Dose Route Start Last Admin Trade Name Freq PRN Reason Stop Dose Admin Ringer's Solution 1,000 mls @ 80 mls/hr 11/02/24 06:00 IV 11/02/24 23:59 INFUSION SAGAR IV Miscellaneous Supplies 1 each 11/02/24 06:00 Iv Access IV 11/02/24 23:59 DIRECTED SAGAR Sodium Chloride 0 ml 11/02/24 06:00 Normal Saline Flush 10 Ml Syr IV 11/02/24 23:59 PRN PRN Sodium Chloride 0 ml 11/02/24 06:00 Normal Saline 10 Ml Vial IJ 11/02/24 23:59 DIRECTED PRN Sterile Water 0 ml 11/02/24 06:00 Water,Injection,Sterile 10 Ml Vial IJ 11/02/24 23:59 DIRECTED PRN PFSH Active Problems Active Problems: Problem Status Onset Code Hyperlipidemia Acute E78.5 Painful lumpy left breast Acute N64.4, N63.20 Vasomotor symptoms due to menopause Acute N95.1 S/P BSO (bilateral salpingo-oophorectomy) Acute Z90.722 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) Leiomyoma of uterus, unspecified (12/04/17) Fibroid uterus Surgical History Surgical History History of colonoscopy (~01/2022) History of section History of appendectomy section Appendectomy Tobacco Smoking/Tobacco Use Status: Never Passive smoking exposure: No Alcohol Alcohol Intake: never Substance Use Substance use: Never Substance use type: does not use Prental History History 2 Para Hx # Term Pregnancies 2 Multiple births Hx # Pregnancies Ectopic pregnancies AB induced Hx Number of Living Children AB spontaneous Vital Signs and Lab Results Vital Signs Most Recent Vital Signs in EMR: Most Recent Vital Signs Temp Pulse Resp BP Pulse Ox 36.7 C 62 14 119/67 100 11/02/24 07:57 11/02/24 07:57 11/02/24 07:57 11/02/24 07:57 11/02/24 07:57 Lab Results Blood Type / Crossmatch: No Data to Display Complete Blood Count: No Data to Display Complete Metabolic Panel: No Data to Display Liver Function Panel: No Data to Display Coagulation Panel: No Data to Display Cardiac Panel: No Data to Display Arterial Blood Gas: No Data to Display Venous Blood Gas: No Data to Display Pancreas Panel: No Data to Display Thyroid Panel: No Data to Display Infectious Disease: No Data to Display Blood Cultures: No Data to Display Toxicology Panel: No Data to Display Panel: No Data to Display Imaging and Studies Imaging and Studies Study information below may be from another EMR and interpreted by another provider. Please see original notes in EMR for more complete details. Pulmonary Function Summary: 12/30: overall normal . Anesthesia Assessment and Plan Anesthesia History Personal History: No History of Anesthesia Complications Family History: No Family History of Anesthesia Complications Exercise Tolerance Exercise Tolerance: Metabolic Equivalents>4 Pertinent Negatives Pertinent Negatives: No Symptoms of GERD, No Major Cardiovascular Symptoms or Complaints and No Major Pulmonary Symptoms or Complaints Cardiac & Pulmonary Exam Cardiac Exam: Normal S1/S2 Heart Sounds Pulmonary Exam: Clear Bilateral Breath Sounds Implantable Cardiac Device Does patient have a Pacemaker or an ICD?: No Airway Exam Known Difficult Airway: No Mallampati Class: 2 Mouth Opening: Normal (> 3cm) Thyromental Distance: Greater than 3 cm Neck Range of Motion: Full ROM Neck Circumference: Normal Teeth Condition: Normal Dentition ASA Classification ASA Score: ASA 2 Emergency Case?: No NPO Status NPO Status: NPO Clears >2 hours, Solids >8 hours Status Status: Not Relevant due to Medical History Anesthesia Plan Resuscitation Status: Full Code Anesthesia Technique: General Anesthesia Airway Planned: Natural Airway Monitors Used: Standard Monitors
[2024-11-02 08:23] VITALS: BMI 23.1
[2024-11-02] MEDS: Lactated Ringers 1,000 ML 80 ML IV (08:28)
[2024-11-02 09:12] VITALS: BP 89/54; PULSE 68; RESP 14; TEMP 36.1; O2SAT 100
[2024-11-02 09:47] VITALS: BP 106/71; PULSE 61; RESP 14; TEMP 36.7; O2SAT 100
--- NOTE | 2024-11-02 09:59 | W.PM.DSUDISC ---
Date of service: 11/02/24 Discharge Plan Disposition Patient Disposition: Home Condition: Good Discharge Details Attending Provider: Michael Nobles Primary Care Provider: Oli Salvador Home Meds and New Rx's Prescriptions: No Action ascorbate calcium (vitamin C) 500 mg tablet 1 g PO DAILY zinc acetate 50 mg (zinc) capsule 50 mg PO DAILY cyanocobalamin (vitamin B-12) 1,000 mcg capsule 1,000 mcg PO DAILY cholecalciferol (vitamin D3) 25 mcg (1,000 unit) capsule 25 mcg PO DAILY vitamin E (dl, acetate) 45 mg (100 unit) capsule 45 mg PO DAILY [place] bone strength 1 tab PO DAILY magnesium 200 mg tablet 200 mg PO DAILY ibuprofen 800 mg tablet 800 mg PO Q8H PRN MDD 2400 mg PRN (Reason: migraines or general pain) Qty: 90 0RF Rx Instructions: As needed for migraines Discharge Instructions Additional Instructions: FINDINGS: You have a healthy colon and rectum. There were no new polyps seen anywhere. There was no inflammation anywhere and nothing to suggest cancer. There was no obvious diverticular disease. Minimal/mild grade 1 internal hemorrhoid disease were seen and these are very common, benign and nothing needs to be done about them. This is probably where some of the bleeding came from. Stand Alone Forms: Anesthesia Discharge Inst., Colonoscopy Post Instructions, Fredis Romero (DSU) Activity:: Activity as Tolerated Diet:: As Tolerated
--- NOTE | 2024-11-02 10:01 | COLE_ITS ---
Date of service: 11/02/24 Time of Service: 10:01 Colonoscopy Report Procedure Description: PROCEDURES PERFORMED: 1. Colonoscopy PREOPERATIVE DIAGNOSIS: Surveillance colonoscopy, sessile serrated polyps POSTOPERATIVE DIAGNOSIS: Normal colon, grade 1 internal hemorrhoids SURGEON: Kimberly Nobles MD INDICATION FOR PROCEDURE: the patient is a healthy 54-year-old woman without a family history of colon cancer but she has a personal history of a sessile serrated polyp being removed the last colonoscopy. She has seen a couple of stools that have scant blood in them recently. No pain associated. FINDINGS: Normal terminal ileum. Grossly normal colon. No inflammation. No obvious diverticular disease. No unusual redundancy. No polyps. Grade 1 internal hemorrhoids are present in the rectum. SURVEILLANCE interval/FOLLOW-UP: Since no new polyps this time I think a 5-year follow-up is okay and if no polyps at that time then 10 years after that. SPECIMENS: None EBL: Minimal COMPLICATIONS: None QUALITY of prep: Excellent Procedure in detail: The patient gave written consent and was in agreement with the indications, the potential risks as well as the benefits of the procedure. They were taken to the endoscopy suite and laid in the left lateral decubitus position. A timeout was performed and anesthesia was administered which was tolerated well. I started the procedure. Digital rectal and visual examination was performed and grossly within normal limits. A well-lubricated flexible colonoscope was then introduced and passed without any notable difficulty all the way to the cecum identified by the ileocecal valve and the appendiceal orifice. The terminal ileum was intubated and looked normal. The scope was then slowly withdrawn with the above-noted findings. The patient tolerated the procedure well and was taken to the PACU in hemodynam ically stable condition.
--- NOTE | 2024-11-02 10:18 | W.ANESPOSTOP ---
Postoperative Evaluation Date, Time and Location Date Performed: 11/02/24 Time Performed: 09:17 Patient Location: Day Surgery Unit Vital Signs Most Recent Imported Vital Signs: Most Recent Vital Signs Temp Pulse Resp BP Pulse Ox 36.7 C 61 14 106/71 100 11/02/24 09:47 11/02/24 09:47 11/02/24 09:47 11/02/24 09:47 11/02/24 09:47 Pain Score Most Recent Pain Score: Most Recent Pain Score Pain Level 0 11/02/24 09:47 Assessment Mental Status: Awake (Alert & Oriented to Patient Baseline) Airway and Respiratory Function: Patent airway with normal (patient baseline) respiratory exam Cardiovascular Function: Hemodynamically Stable Hydration Status: Adequately Hydrated Nausea & Vomiting: No Nausea or Vomiting Pain: Pt. Denies Any Pain Peripheral Nerve Block: Patient did not receive a nerve block
== END 2024-11-02 10:25 | disposition home or self-care (01) ==
PROVIDERS: PCP Family Medicine; Visit Provider Student in an Organized Health Care Education/Training Program
PROC: 0DJD8ZZ Inspection of Lower Intestinal Tract, Via Natural or Artificial Opening Endoscopic (ICD-10-PCS; CPT 45378; principal; 2024-11-02 09:00)
DX: Z12.11 Encounter for screening for malignant neoplasm of colon (principal); K64.0 First degree hemorrhoids
CPT/HCPCS: 45378; J2003; J2405; J2704

== ENCOUNTER 2024-12-03 01:31 | Emergency (ER) | payer OTHER, SELFPAY ==
[2024-12-03 01:34] VITALS: BP 124/72; PULSE 67; RESP 18; TEMP 36.3; O2SAT 100
--- NOTE | 2024-12-03 01:49 | ED.GENADUL_ITS ---
Discharge Plan Disposition Patient Disposition: Home Condition: Good Discharge Details Clinical Impression: Ankle sprain Primary Care Provider: Oli Salvador ED Provider: Billie Graham Home Meds and New Rx's Prescriptions: New ibuprofen 400 mg tablet 800 mg PO Q8H PRNQty: 60 0RF Continued ascorbate calcium (vitamin C) 500 mg tablet 1 g PO DAILY zinc acetate 50 mg (zinc) capsule 50 mg PO DAILY cyanocobalamin (vitamin B-12) 1,000 mcg capsule 1,000 mcg PO DAILY cholecalciferol (vitamin D3) 25 mcg (1,000 unit) capsule 25 mcg PO DAILY vitamin E (dl, acetate) 45 mg (100 unit) capsule 45 mg PO DAILY [place] bone strength 1 tab PO DAILY magnesium 200 mg tablet 200 mg PO DAILY ibuprofen 800 mg tablet 800 mg PO Q8H PRN MDD 2400 mg PRN (Reason: migraines or general pain) Qty: 90 0RF Rx Instructions: As needed for migraines Discharge Instructions Instructions: Ankle Sprain ED HPI General Mode of arrival: ambulatory . Date/Time Provider Initiated Documentation: 12/03/24 01:43 . Limitations to Documentation: no limitations . Information obtained by: patient . HPI Narrative: 54yo F presenting with right ankle pain. Slipping stepping down last step coming down stairs and inverted ankle. Fell to the ground. No HS or LOC. Right ankle pain, denies pain or injury elsewhere. No numbness or tingling. Otherwise in her usual state of health. Related Data Home Medications ?Medication ?Instructions ?Recorded ?Confirmed ibuprofen 800 mg tablet 800 mg PO Q8H PRN PRN migraines or 04/21/22 12/03/24 general pain #90 tabs [place] bone strength 1 tab PO DAILY 07/17/23 12/03/24 ascorbate calcium (vitamin C) 500 1 g PO DAILY 07/17/23 12/03/24 mg tablet cholecalciferol (vitamin D3) 25 25 mcg PO DAILY 07/17/23 12/03/24 mcg (1,000 unit) capsule cyanocobalamin (vitamin B-12) 1,000 mcg PO DAILY 07/17/23 12/03/24 1,000 mcg capsule vitamin E (dl, acetate) 45 mg (100 45 mg PO DAILY 07/17/23 12/03/24 unit) capsule zinc acetate 50 mg (zinc) capsule 50 mg PO DAILY 07/17/23 12/03/24 magnesium 200 mg tablet 200 mg PO DAILY 02/25/24 12/03/24 ibuprofen 400 mg tablet 800 mg (2 x 400 mg) PO Q8H PRN #60 12/03/24 tabs Previous Rx's ?Medication ?Instructions ?Recorded ibuprofen 800 mg tablet 800 mg PO Q8H PRN PRN migraines or 04/21/22 general pain #90 tabs ibuprofen 400 mg tablet 800 mg (2 x 400 mg) PO Q8H PRN #60 12/03/24 tabs Allergies Allergy/AdvReac Type Severity Reaction Status Date / Time morphine AdvReac Intermediate heart Verified 12/03/24 01:40 racing, anxitey attacks insect bites Allergy Severe edema Uncoded 12/03/24 01:40 General Stated Complaint: Orthopedic JEREMY: 4 Review of Systems Narrative: see HPI Exam Narrative Exam Narrative: General: Alert, well appearing, well nourished, in no acute distress. Head: Normocephalic, atraumatic Neck: Trachea midline, ?Neck supple. Cardiac: ?No cyanosis. Well perfused. Resp: No respiratory distress. Abd: Non-distended, Extremities: ?No deformities.? No peripheral edema. Right ankle with tenderness to palpation of anterior edge of lateral malleolus. No other bony tenderness to ankle or midfoot. Pain with passive ROM, worst with dorsiflexion. No swelling. Sensation intact throughout right ankle and foot. Brisk capillary refill. 2+ DP pulse. Neurologic: GCS 15. ? Moves all extremities freely against gravity Course Vital Signs Vital signs: Vital Signs Temperature 36.3 C L 12/03/24 01:34 Pulse 67 12/03/24 01:34 Respiratory Rate 18 12/03/24 01:34 Blood Pressure 124/72 12/03/24 01:34 Pulse Oximetry 100 12/03/24 01:34 Temperature 36.3 C L 12/03/24 01:34 Pulse 67 12/03/24 01:34 Respiratory Rate 18 12/03/24 01:34 Blood Pressure 124/72 12/03/24 01:34 Pulse Oximetry 100 12/03/24 01:34 Oxygen Delivery Method Room Air 12/03/24 01:34 Oxygen Flow Rate 0 12/03/24 01:34 Pain Level 8 12/03/24 01:34 Medical Decision Making 54yo F presenting with right ankle pain, slipped and inverted her foot. Vital signs and physical exam reassuring. Pain with passive ROM at right ankle and tender to anterior edge of lateral malleolus. Neurovascular intact, no indication for advanced imaging/CT scan. [place] ankle negative; would not get XR. Likely ankle sprain. Given tylenol, toradol, karsten wrap; advised RICE and symptomatic treatment at home. Discharged home; discharge instructions and return precautions were reviewed with patient who verbalized understanding. All questions were answered and she is in full agreement with the plan. Quality:SDOH Health Related Social Needs: No Data to Display PFSH All Active Problems (Updated 12/03/24 @ 01:48 by Billie Graham MD) Ankle sprain (Acute) Hyperlipidemia (Acute) Painful lumpy left breast (Acute) Vasomotor symptoms due to menopause (Acute) S/P BSO (bilateral salpingo-oophorectomy) (Acute) Benign teratoma of right ovary (Acute) Hip pain, right (Acute) Nonscarring hair loss, unspecified (Acute) Serrated adenoma of colon (Acute) Tubular adenoma of colon (Acute) Hyperplastic colon polyp (Acute) Encounter for screening for malignant neoplasm of colon (Acute) Melasma (Acute) Derm: [facility] [place] Unspecified hemorrhoids (Acute 12/04/17) Hemorrhoid (Chronic) Medical History (Updated 12/03/24 @ 01:48 by Billie Graham MD) No blood products Vulvar lesion Hyperplastic rectal polyp (~02/03/22) Tubular adenoma (~02/03/22) Vaginal odor 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 (12/04/17) Migraine with aura Cyst of right kidney (12/04/17) 1.3 cm Pt. 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) Leiomyoma of uterus, unspecified (12/04/17) Fibroid uterus Surgical History (Updated 11/04/24 @ 08:05 by Valorie Penny) History of colonoscopy (~10/2024) History of section History of appendectomy section Appendectomy Family History (Updated 05/01/22 @ 19:07 by Alexa Delgado MD) Maternal Cousin Breast cancer Maternal Cousin Stomach cancer Mother Diabetes Heart disease COPD (chronic obstructive pulmonary disease) Social History (Updated 09/03/24 @ 14:22 by Alexa Delgado MD) Smoking/Tobacco Use Status: Never Smoking risk assessment performed?: Yes Alcohol Intake: never Drug use: Never Substance use type: does not use Adopted: No Caregiver/Support person: No Foster care: No Household members: spouse and children Housing: house Number of Children: 2 Communication Needs: None 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 @ [employer] Pets and animals: Yes Pets and animals: dog(s) Sexually active: Yes Current gender identity: female What is your relationship status?: Panel score (0-1 are the most socially isolated patients): 1 What type of physical activity do you participate in: other Details: active with work and household Frequency: daily Seatbelt use: always Drive intox or ride w/intox jeep driver: No Working smoke detector in home: Yes Carbon monox detector in home: Yes Do you feel safe at home: Yes (UTAP) Do you feel safe in your relationship?: Yes Female Reproductive History Menstrual control method: none History History 2 Para Hx # Term Pregnancies 2 Multiple births Hx # Pregnancies Ectopic pregnancies AB induced Hx Number of Living Children AB spontaneous
[2024-12-03] MEDS: Acetaminophen 500 MG TAB 1000 MG PO (01:57)
[2024-12-03 02:28] VITALS: RESP 18
== END 2024-12-03 02:29 | disposition home or self-care (01) ==
PROVIDERS: Emergency Provider Student in an Organized Health Care Education/Training Program; PCP Family Medicine
DX: S93.401A Sprain of unspecified ligament of right ankle, initial encounter (principal); X50.1XXA Overexertion from prolonged static or awkward postures, initial encounter; Y93.01 Activity, walking, marching and hiking
CPT/HCPCS: 99283